=== PATIENT | male | born 1965 | race African-American/Black ===

== ENCOUNTER 2018-02-08 10:37 | Emergency (ER) | payer MEDICAID ==
[~2018-02-08] VITALS: Ht 190.5 cm; Wt 154.2 kg
[2018-02-08] MEDS ORDERED: cloNIDine HCL 0.1 MG TAB ONE (10:47)
[2018-02-08 10:49] VITALS: BP 170/101
[2018-02-08] MEDS ORDERED: cloNIDine HCL 0.1 MG TAB PO ONE (11:00)
== END 2018-02-08 11:50 | disposition left against medical advice (07) ==
LOC: ER 10:37
DX: I10 Essential (primary) hypertension (principal); Z53.21 Procedure and treatment not carried out due to patient leaving prior to being seen by health care provider